=== PATIENT | male | born 1960 | race Caucasian/White ===

== ENCOUNTER 2020-06-15 08:55 | Outpatient (CLI) | payer BC, SELFPAY ==
--- NOTE | 2020-06-19 12:59 | WPDHOLTEREM ---
Holter/Event Monitor Holter/Event Monitor Date of procedure: 06/15/20 Procedure Type: 24 hour holter monitor Indications: Cardiac arrhythmia Conclusion: 1. 24 hour holter monitor on 06/15/20. 2. Underlying rhythm is sinus rhythm. HR range 50-148 bpm; average HR 90 bpm. 3. There are 5,409 premature supraventricular complexes, 142 supraventricular couplets, 343 supraventricular trigeminy. No supraventricular tachycardia. 4. There is 1 premature ventricular complex. No ventricular tachycardia. 5. No sinoatrial or atrioventricular blocks. No significant pauses greater than 2 seconds. 6. No symptoms available for correlation.
== END 2020-06-15 08:56 | disposition home or self-care (01) ==
PROVIDERS: PCP Physician Assistant; Visit Provider Physician Assistant
DX: I49.9 Cardiac arrhythmia, unspecified (principal)
CPT/HCPCS: 93225; 93226

== ENCOUNTER 2020-07-13 09:38 | Outpatient (CLI) | payer BC, SELFPAY ==
--- NOTE | ~2020-07-13 | XR_ITS ---
XR wrist LT min 3V DATE: 07/13/2020 10:33 INDICATION: Left wrist pain, lump TECHNIQUE: 4 views COMPARISON: None FINDINGS: There is severe osteoarthritis at the radiocarpal joint. There is moderate osteoarthritis a t the triscaphe joint and first through third metacarpophalangeal joints. No fracture or dislocation, periosteal reaction or bone destruction. IMPRESSION: Polyarticular osteoarthritis Reviewed, dictated and finalized at location B. [employer]
== END 2020-07-13 09:39 | disposition home or self-care (01) ==
PROVIDERS: PCP Physician Assistant; Visit Provider Plastic Surgery
DX: M19.032 Primary osteoarthritis, left wrist (principal)
CPT/HCPCS: 73110

== ENCOUNTER 2022-04-01 14:58 | Outpatient (CLI) | payer BC, SELFPAY ==
--- NOTE | ~2022-04-01 | XR_ITS ---
XR lumbar spine 6V w bending DATE: 04/01/2022 15:13 INDICATION: Low back pain TECHNIQUE: AP, lateral, coned lateral lumbosacral and bilateral oblique views. Flexion and extension lateral views. COMPARISON: None FINDINGS: There is mild thoracolumbar levoscoliosis. There is moderate degenerative disc disease and spurring at L1-2, L2-3, L3-4 and L4-5. L5-S1 interspa ce is well preserved. No spondylolysis or spondylolisthesis. Degenerative change is noted at L5-S1 apophyseal joints. No fracture or bone destruction is detected. The lumbar pedicles are intact. The sacroiliac joints are intact. IMPRESSION: Moderate degenerative disc disease Reviewed, dictated and finalized at location B.
== END 2022-04-01 14:59 | disposition home or self-care (01) ==
LOC: ANHIMG 14:59
PROVIDERS: PCP Physician Assistant; Visit Provider Physician Assistant
DX: M54.50 Low back pain, unspecified (principal); M51.36 Other intervertebral disc degeneration, lumbar region
CPT/HCPCS: 72114

== ENCOUNTER 2023-12-28 13:20 | Outpatient (CLI) | payer BC, SELFPAY ==
--- NOTE | ~2023-12-28 | XR_ITS ---
Left Knee Technique: AP, lateral, and sunrise views were obtained. Clinical History: Pain Findings: No fracture or dislocation is seen. Osseous alignment is anatomic. Joint spaces are preserv ed without degenerative or erosive change. Chondrocalcinosis of the menisci noted. No joint effusion is seen. Impression: Chondrocalcinosis of the menisci. Reviewed, dictated and finalized at location . Impression: Chondrocalcinosis of the menisci.
== END 2023-12-28 13:21 | disposition home or self-care (01) ==
LOC: ANHIMG 13:21
PROVIDERS: PCP Physician Assistant; Visit Provider Physician Assistant
DX: M11.262 Other chondrocalcinosis, left knee (principal)
CPT/HCPCS: 73562

== ENCOUNTER 2024-01-21 13:23 | Outpatient (CLI) | payer BC, SELFPAY ==
--- NOTE | ~2024-01-21 | MR_ITS ---
EXAMINATION: MR knee LT wo con DATE: 01/21/2024 14:08 INDICATION: Left knee pain. TECHNIQUE: Magnetic resonance imaging (MRI) of the left knee was performed without intravenous contra st. Sequences included axial PD-weighted FS FSE, coronal PD-weighted FSE and PD-weighted FS FSE, sagi ttal PD-weighted FSE, and sagittal T2-weighted FS FSE. COMPARISON: Left knee radiographs 12/28/2023 FINDINGS: Medial compartment: There is a complex tear involving body and posterior horn of medial meniscus. There is a displaced me niscal flap component superior to the body segment. There is full-thickness cartilage fissuring of ti bial condyle involving the central articular surface with moderate subchondral edema-like marrow sign al intensity. There is full-thickness cartilage loss of femoral condyle involving the central articul ar surface with moderate subchondral edema-like marrow signal intensity. Lateral compartment: Lateral meniscus is normal. There is cartilage surface irregularity of tibial condyle and femoral con dyle. Patellofemoral compartment: There is cartilage surface irregularity of patella. There is shallow partial-thickness cartilage loss of medial trochlea with mild subchondral edema-like marrow signal intensity. Ligaments and tendons: The anterior and posterior cruciate ligaments are normal. There are changes of prior sprains of media l collateral ligament and fibular collateral ligament characterized by thickening and increased signa l intensity proximally. There is mild patellar tendinopathy. Fluid: There is a small knee joint effusion. There is mild prepatellar and superficial infrapatellar bursiti s. There is a small John's cyst. IMPRESSION: 1. Severe chondrosis of medial compartment and mild chondrosis of lateral and patellofemoral compartm ents. 2. Complex tear of medial meniscus. 3. Small knee joint effusion. 4. Small John's cyst. Reviewed, dictated and finalized at location A. IMPRESSION: 1. Severe chondrosis of medial compartment and mild chondrosis of lateral and p atellofemoral compartments. 2. Complex tear of medial meniscus. 3. Small knee joint effusion. 4. Small John's cyst.
== END 2024-01-21 13:24 | disposition home or self-care (01) ==
LOC: ANHIMG 13:23
PROVIDERS: PCP Physician Assistant; Visit Provider Orthopaedic Surgery
DX: M94.262 Chondromalacia, left knee (principal); S83.232A Complex tear of medial meniscus, current injury, left knee, initial encounter; M25.462 Effusion, left knee; M71.22 Synovial cyst of popliteal space [Baker], left knee; X58.XXXA Exposure to other specified factors, initial encounter
CPT/HCPCS: 73721